=== PATIENT | male | born 1965 | race African-American/Black ===

== ENCOUNTER 2017-08-23 22:00 | Emergency (ER) | payer SELFPAY ==
[2017-08-23 23:34] LABS: APPEARANCE CLEAR (CLEAR); BILIRUBIN NEGATIVE (NEGATIVE); COLOR YELLOW (YELLOW); GLUCOSE NEGATIVE (NEGATIVE); KETONE NEGATIVE (NEGATIVE); NITRITE NEGATIVE (NEGATIVE); PROTEIN TRACE mg/dL (NEGATIVE); SPECIFIC GRAVITY 1.015 (1.005-1.020)
[2017-08-23 23:35] LABS: BACTERIA FEW /hpf (NONE SEEN); EPITHELIAL CELLS 0-5 /hpf (0-5); MUCUS <1+ /lpf (NONE SEEN); RED CELLS - URINE 0-5 /hpf (0-5); WHITE CELLS - URINE 0-5 /hpf (0-5)
== END 2017-08-23 23:55 | disposition home or self-care (01) ==
LOC: D.ER 22:00
PROVIDERS: Emergency Medicine
DX: K64.9 Unspecified hemorrhoids (principal); F17.200 Nicotine dependence, unspecified, uncomplicated

== ENCOUNTER 2017-08-25 11:28 | Emergency (ER) | payer SELFPAY ==
[2017-08-25 13:36] LABS: BASOPHILS 0.1 % (0-2); EOSINOPHILS 0.2 % (0-7); HEMATOCRIT 38.1 % (42.0-54.0); HEMOGLOBIN 12.8 g/dL (13.5-17.5); IMMATURE GRANULOCYTES 0.4 % (0-5); MCH 27.1 pg (26.0-34.0); MCHC 33.6 g/dL (31.0-37.0); MCV 80.5 fL (80.0-100.0); MONOCYTES 10.7 % (2-11); NEUTROPHILS 84.6 % (40-80); PLATELET COUNT 329 10x3/uL (130-400); RBC 4.73 10x6/uL (4.20-6.10); RDW 13.3 % (11.5-14.5); WBC 26.8 10x3/uL (4.8-10.8)
[2017-08-25 13:44] LABS: ALBUMIN 3.4 g/dL (3.4-5.0); ANION GAP 12.3 mmol/L (8-16); BILIRUBIN - TOTAL 0.57 mg/dL (0.2-1.3); CALCIUM 9.5 mg/dL (8.5-10.1); CARBON DIOXIDE 28.5 mmol/L (21.0-32.0); CREATININE - SERUM 1.4 mg/dL (0.6-1.3); POTASSIUM - SERUM 3.8 mmol/L (3.5-5.1); PROTEIN - SERUM 8.3 g/dL (6.4-8.2)
== END 2017-08-25 18:16 | disposition home or self-care (01) ==
LOC: D.ER 11:28
PROVIDERS: Physician Assistant
DX: K61.0 Anal abscess (principal); F17.200 Nicotine dependence, unspecified, uncomplicated

== ENCOUNTER 2017-08-28 16:40 | Emergency (ER) | payer SELFPAY | END 2017-08-28 20:50 | disposition home or self-care (01) | LOC: D.ER 16:40 | DX: L02.214 Cutaneous abscess of groin (principal) ==

== ENCOUNTER 2018-05-25 19:26 | Emergency (ER) | payer OTHER ==
[~2018-05-25] VITALS: Ht 190.5 cm; Wt 94.3 kg
[2018-05-25 19:30] VITALS: Ht 190.5 cm; Wt 94.3 kg
[2018-05-25] MEDS ORDERED: TRAZODONE HCL50 MG PO (21:03)
[2018-05-25] MEDS ORDERED: BACTRIM DS TABL1 TAB PO (21:03)
[2018-05-26 02:56] VITALS: BP 113/75
== END 2018-05-25 21:15 | disposition home or self-care (01) ==
LOC: D.ER 19:26
DX: F51.5 Nightmare disorder (principal); R51 Headache; R09.89 Other specified symptoms and signs involving the circulatory and respiratory systems; F17.200 Nicotine dependence, unspecified, uncomplicated